=== PATIENT | female | born 2005 | race Caucasian/White ===

== ENCOUNTER 2024-07-08 17:50 | Outpatient (CLI) | payer OTHER, SELFPAY | END 2024-07-08 17:51 | disposition home or self-care (01) | LOC: NFLDREF 07-11 18:46 | PROVIDERS: Visit Provider Nurse Practitioner | DX: N30.01 Acute cystitis with hematuria (principal); B96.20 Unspecified Escherichia coli [E. coli] as the cause of diseases classified elsewhere | CPT/HCPCS: 87086 ==